=== PATIENT | female | born 1995 ===

== ENCOUNTER → 2020-10-04 11:19 | Outpatient (BNVA) | payer MEDICAID, SELFPAY | PROVIDERS: PCP Family Medicine; Visit Provider Advanced Practice Midwife | DX: Z76.89 Persons encountering health services in other specified circumstances (principal) ==

== ENCOUNTER 2020-11-10 13:06 | Outpatient (REF) | payer MEDICAID, SELFPAY ==
--- NOTE | ~2020-11-10 | XR_ITS ---
EXAMINATION: XR CHEST CLINICAL INFORMATION: Cough. COMPARISON: None TECHNIQUE: 2 views of the chest were obtained. FINDINGS: No significant abnormality is noted involving the heart, lungs, mediastinum, bony thorax or soft tissues. XR/XR chest 2V IMPRESSION: No acute cardiopulmonary process.
[2020-11-10 13:49] LABS: MANUAL DIFF FLAG NO
[2020-11-10 13:53] LABS: Basophils Percent Auto 0.3 % (0-2); Eosinophils Absolute Auto 0.5 X10*3/uL (0.0-0.4); Eosinophils Percent Auto 6.9 % (0-4); Hematocrit 37.1 % (37-47); Hemoglobin 11.4 g/dl (12.0-16.0); Imm Gran Abs Auto 0.01 X10*3/uL (0.00-0.03); Imm Gran Pct Auto 0.1 % (0.0-0.4); Lymphocytes Absolute Auto 2.3 X10*3/uL (1.2-4.9); Lymphocytes Percent Auto 33.7 % (20-40); Mean Corpuscular HGB Conc 30.7 g/dl (31.0-35.0); Mean Corpuscular Hemoglobin 24.1 pg (27.0-33.0); Mean Corpuscular Volume 78.3 fL (80-98); Monocytes Absolute Auto 0.5 X10*3/uL (0.1-1.2); Monocytes Percent Auto 7.9 % (2-11); Neutrophils Absolute Auto 3.5 X10*3/uL (2.0-8.3); Neutrophils Percent Auto 51.1 % (45-73); Platelet Count 395 X10*3/uL (160-400); Red Blood Count 4.74 X10*6/uL (4.20-5.50); Red Cell Distribution Width 15.2 % (11.0-16.0); White Blood Count 6.9 X10*3/uL (4.8-10.8)
[2020-11-10 14:34] LABS: Alanine Aminotransferase 25 U/L (0-31); Albumin Level 4.7 g/dL (3.5-5.0); Alkaline Phosphatase 128 U/L (39-117); Anion Gap 12 (12-20); Aspartate Amino Transferase 20 U/L (5-31); Bilirubin Direct < 0.2 mg/dL (0.0-0.5); Bilirubin Total 0.4 mg/dL (0.0-1.0); Blood Urea Nitrogen 8 mg/dL (9-16); Calcium 9.4 mg/dL (8.4-10.2); Carbon Dioxide 24 mmol/L (22-29); Chloride 107 mmol/L (96-108); Cholesterol 198 mg/dL; Estimated Glomerular Filt Rate > 60; Glucose Random 102 mg/dL (60-115); HDL Cholesterol 37 mg/dL; LDL Cholesterol Calculated 122 mg/dl; Potassium 3.8 mmol/L (3.3-5.1); Sodium 139 mmol/L (135-145); Total Protein 8.3 g/dL (6.5-8.0); Triglycerides 197 mg/dL
[2020-11-10 14:54] LABS: Estimated Average Glucose 117 mg/dL; Hemoglobin A1c % 5.7 %
[2020-11-10 14:55] LABS: Free T4 (Free Thyroxine) 0.81 ng/dL (0.71-1.85); Thyroid Stimulating Hormone 2.58 uIU/mL (0.32-4.0); Vitamin D 25-OH Total 12.9 ng/mL (>30)
[2020-11-11 08:22] LABS: HIV AB/AG Nonreactive (Nonreactive); HIV Num 1 0.13 S/CO (0.00-0.99); Hepatitis B Surface Antigen Negative (Negative)
[2020-11-11 08:24] LABS: ~HepC Num1 0.08 S/CO (0.00-0.79); ~Hepatitis C Antibody Nonreactive (Nonreactive)
[2020-11-11 08:33] LABS: ~Hepatitis B Surface Antibody NONREACTIVE (Nonreactive)
[2020-11-11 09:39] LABS: Syphilis Screen Nonreactive (Nonreactive)
[2020-11-11 14:56] LABS: C. trachomatis RNA TMA NOT DETECTED (NOT DETECTED); N. gonorrhoeae RNA TMA NOT DETECTED (NOT DETECTED)
== END 2020-11-10 13:07 | disposition home or self-care (01) ==
LOC: HO.LAB 13:06
PROVIDERS: PCP Family Medicine; Visit Provider Family Medicine
DX: F32.9 Major depressive disorder, single episode, unspecified (principal); G43.709 Chronic migraine without aura, not intractable, without status migrainosus; R05 Cough
CPT/HCPCS: 36415; 71046; 80048; 80061; 80076; 82306; 83036; 84439; 84443; 85025; 86706; 86780; 86803; 87340; 87389; 87491; 87591

== ENCOUNTER 2020-12-05 08:55 | Outpatient (REF) | payer MEDICAID, SELFPAY ==
[2020-12-05 10:41] LABS: Hematocrit 36.2 % (37-47); Hemoglobin 10.9 g/dl (12.0-16.0); Mean Corpuscular HGB Conc 30.1 g/dl (31.0-35.0); Mean Corpuscular Hemoglobin 23.6 pg (27.0-33.0); Mean Corpuscular Volume 78.5 fL (80-98); Mean Platelet Volume 10.5 fL (9.4-12.3); Platelet Count 390 X10*3/uL (160-400); Red Blood Count 4.61 X10*6/uL (4.20-5.50); Red Cell Distribution Width 15.6 % (11.0-16.0); White Blood Count 6.4 X10*3/uL (4.8-10.8)
[2020-12-05 11:14] LABS: HCG Quantitative < 2 mIU/mL
[2020-12-05 16:58] LABS: CT PCR NOT DETECTED (Not Detect.); NG PCR NOT DETECTED (Not Detect.)
[2020-12-06 09:04] LABS: BV Int Neg Control Negative (Negative); BV Int Pos Control Positive (Positive)
== END 2020-12-05 08:56 | disposition home or self-care (01) ==
LOC: HO.LAB 08:55
PROVIDERS: PCP Family Medicine; Visit Provider Advanced Practice Midwife
DX: Z01.419 Encounter for gynecological examination (general) (routine) without abnormal findings (principal); N92.6 Irregular menstruation, unspecified; Z88.0 Allergy status to penicillin; G43.909 Migraine, unspecified, not intractable, without status migrainosus; Z88.5 Allergy status to narcotic agent; Z97.5 Presence of (intrauterine) contraceptive device; Z11.3 Encounter for screening for infections with a predominantly sexual mode of transmission; Z11.8 Encounter for screening for other infectious and parasitic diseases
CPT/HCPCS: 36415; 84702; 85027; 87480; 87491; 87510; 87591; 87660; 88142

== ENCOUNTER 2020-12-15 10:30 | Outpatient (REF) | payer MEDICAID, SELFPAY ==
--- NOTE | ~2020-12-15 | US_ITS ---
EXAMINATION: ULTRASOUND PELVIS COMPLETE CLINICAL INFORMATION: Irregular menstruation. History of IUD. COMPARISON: None TECHNIQUE: Transabdominal and transvaginal ultrasound pelvis is performed. FINDINGS: On transabdominal ultrasound the uterus is anteverted and anteflexed measuring 7.7 cm in length, 3.3 cm in AP and 5.4 cm in transverse dimension. Endometrial thickness is 0.7 cm. An IUD is noted to be in correct position within the endometrial canal. No focal lesion seen. The right ovary measures 3.5 x 2.4 x 2.2 cm and volume 9.7 mL. There are small follicles seen in the right ovary. Left ovary measures 2.2 x 1.7 x 1.4 cm and volume 4.0 mL. There are small follicles visualized. There is no free fluid in the cul-de-sac. US/US pelvic complete IMPRESSION: Anteverted uterus with IUD in correct position within the endometrial canal. Small ovarian follicles seen bilaterally. There is no free fluid in the cul-de-sac.
--- NOTE | ~2020-12-15 | US_ITS ---
EXAMINATION: ULTRASOUND PELVIS COMPLETE CLINICAL INFORMATION: Irregular menstruation. History of IUD. COMPARISON: None TECHNIQUE: Transabdominal and transvaginal ultrasound pelvis is performed. FINDINGS: On transabdominal ultrasound the uterus is anteverted and anteflexed measuring 7.7 cm in length, 3.3 cm in AP and 5.4 cm in transverse dimension. Endometrial thickness is 0.7 cm. An IUD is noted to be in correct position within the endometrial canal. No focal lesion seen. The right ovary measures 3.5 x 2.4 x 2.2 cm and volume 9.7 mL. There are small follicles seen in the right ovary. Left ovary measures 2.2 x 1.7 x 1.4 cm and volume 4.0 mL. There are small follicles visualized. There is no free fluid in the cul-de-sac. US/US transvaginal IMPRESSION: Anteverted uterus with IUD in correct position within the endometrial canal. Small ovarian follicles seen bilaterally. There is no free fluid in the cul-de-sac.
== END 2020-12-15 10:31 | disposition home or self-care (01) ==
LOC: HO.US 10:30
PROVIDERS: Visit Provider Advanced Practice Midwife
DX: N92.6 Irregular menstruation, unspecified (principal)
CPT/HCPCS: 76830; 76856

== ENCOUNTER → 2020-12-19 13:38 | Outpatient (BNVA) | payer MEDICAID, SELFPAY | PROVIDERS: PCP Family Medicine; Visit Provider Advanced Practice Midwife ==

== ENCOUNTER → 2020-12-21 11:32 | Outpatient (BNVA) | payer MEDICAID, SELFPAY | PROVIDERS: PCP Family Medicine; Visit Provider Obstetrics & Gynecology ==

== ENCOUNTER → 2021-04-12 14:36 | Outpatient (BNVA) | payer MEDICAID, SELFPAY | PROVIDERS: Visit Provider Obstetrics & Gynecology ==

== ENCOUNTER → 2021-04-26 07:59 | Outpatient (BNVA) | payer MEDICAID, SELFPAY | PROVIDERS: Visit Provider Obstetrics & Gynecology | DX: Z30.09 Encounter for other general counseling and advice on contraception (principal) | CPT/HCPCS: 99212 ==

== ENCOUNTER 2021-05-26 09:17 | Day surgery (SDC) | payer MEDICAID, SELFPAY ==
[2021-05-22 09:14] VITALS: BMI 37.5
[2021-05-22 09:36] VITALS: BMI 37.5
--- NOTE | 2021-05-25 08:54 | HO.ANESPROP2 ---
Documented by User: Ambreen Lara NP 05/25/21 08:55 HPI - Anesthesia Eval Consult details Narrative: 26yo F for Laparoscopic Tubal Ligation with Bipolar Cutery & Poss Bilateral Salpingectomy PMFSH Active Problems Active Problems: All Active Problems (Updated 05/22/21 @ 10:12 by Kathya Khan RN) Family planning (Acute) Sterilization (Acute) Past Medical History Medical History (Updated 05/26/21 @ 10:00 by Joie Huerta MD) Asthma History of cardiac murmur as a child Increased BMI Migraine headache Seasonal allergies Family History Family History Maternal Grandmother Breast CA Colon cancer Maternal Aunt Breast CA Family/Other Colon cancer Surgical History Surgical History (Updated 05/26/21 @ 09:59 by Joie Huerta MD) No significant past surgical history Social History Social History Patient Tobacco Use Status: Never used Tobacco Use of substances other than those prescribed or required for medical reasons: No Have you been hit, kicked, punched, or otherwise hurt by someone within the past year? If so, by whom?: No Are you DNR?: No Advance Directives: No Advance Directives Information Provided: No Advance Directives on File: No Patient : No FDLMP: 05/20/2021 : No Poor oral hygiene: No Meds Allergies Allergy/AdvReac Type Severity Reaction Status Date / Time Penicillins [PENICILLINS] Allergy Unknown HIVES Verified 05/22/21 09:35 Codeine Sulfate Allergy Unknown tachycardia Uncoded 05/22/21 09:35 Home Medications Medication Instructions Recorded Confirmed Last Taken Type amitriptyline 50 mg tablet 50 mg PO DAILY 10/04/20 Unknown History topiramate 50 mg capsule 50 mg PO DAILY 10/04/20 Unknown History sprinkle,extended release 24 hr albuterol sulfate 90 mcg/actuation 1 inh INHALATION QID PRN 12/05/20 05/22/21 Unknown History aerosol inhaler cholecalciferol (vitamin D3) 50 50 mcg PO DAILY 12/05/20 Unknown History mcg (2,000 unit) capsule copper 380 square mm intrauterine INTRAUTERINE 04/12/21 Unknown History device (ParaGard T 380A) cetirizine 10 mg capsule (Zyrtec) 10 mg PO DAILY PRN 04/26/21 05/22/21 Unknown History melatonin 5 mg tablet 1 - 2 tab PO BEDTIME PRN 05/22/21 05/22/21 Unknown History Exam Exam Date and Time: May 25, 2021 0854 Height,Weight and Vital Signs: Height 5 ft 5 in Weight 102.512 kg Assessment and Plan Assessment Anesthesia Assessment: Chart Reviewed Documented by User: Joie Huerta MD 05/26/21 10:01 [facility] Past Medical History Medical History (Updated 05/26/21 @ 10:00 by Joie Huerta MD) Asthma History of cardiac murmur as a child Increased BMI Migraine headache Seasonal allergies Family History Family History Maternal Grandmother Breast CA Colon cancer Maternal Aunt Breast CA Family/Other Colon cancer Family history of problems with anesthesia: No Surgical History Surgical History (Updated 05/26/21 @ 09:59 by Joie Huerta MD) No significant past surgical history History of Problems with Anesthesia: No Social History Social History Patient Tobacco Use Status: Never used Tobacco Use of substances other than those prescribed or required for medical reasons: No Have you been hit, kicked, punched, or otherwise hurt by someone within the past year? If so, by whom?: No Are you DNR?: No Advance Directives: No Advance Directives Information Provided: No Advance Directives on File: No Patient : No FDLMP: 05/20/2021 : No Poor oral hygiene: No Meds Allergies Allergy/AdvReac Type Severity Reaction Status Date / Time Penicillins [PENICILLINS] Allergy Unknown HIVES Verified 05/22/21 09:35 Codeine Sulfate Allergy Unknown tachycardia Uncoded 05/22/21 09:35 Home Medications Medication Instructions Recorded Confirmed Last Taken Type amitriptyline 50 mg tablet 50 mg PO DAILY 10/04/20 Unknown History topiramate 50 mg capsule 50 mg PO DAILY 10/04/20 Unknown History sprinkle,extended release 24 hr albuterol sulfate 90 mcg/actuation 1 inh INHALATION QID PRN 12/05/20 05/22/21 Unknown History aerosol inhaler cholecalciferol (vitamin D3) 50 50 mcg PO DAILY 12/05/20 Unknown History mcg (2,000 unit) capsule copper 380 square mm intrauterine INTRAUTERINE 04/12/21 Unknown History device (ParaGard T 380A) cetirizine 10 mg capsule (Zyrtec) 10 mg PO DAILY PRN 04/26/21 05/22/21 Unknown History melatonin 5 mg tablet 1 - 2 tab PO BEDTIME PRN 05/22/21 05/22/21 Unknown History Exam Height,Weight and Vital Signs: Height 5 ft 5 in Weight 102.512 kg Vital Signs Temp Pulse Resp BP Pulse Ox 05/26/21 09:49 97.2 F 72 18 143/77 H 100 Pertinent Lab Results Pertinent Lab Results: Lab Results 05/26/21 Range/Units 09:20 Urine Test NEGATIVE (NEGATIVE) Airway Mallampati Class: II TM Dist: >3cm Neck ROM: Full Heart: RRR Lungs: CTAB Assessment and Plan Assessment Anesthesia Assessment: Anesthesia Plan Discussed Final Anesthetic Review Family History of Problems with Anesthesia: No History of Problems with Anesthesia: No NPO: Yes ASA Class: III Final Preanesthetic Review: No Changes in Pt Med Stat, Meds/Allgs Chart Reviewed, Consent Obtained/Reviewed and Anes Risks/Benef Reviewed Patient Risk: Intermediate Procedure Risk: Low Assessment/Block/Sedation in SS: Assess/Block/Sedation-SS Anesthetic Plan Anesthetic Plan: GA Disposition: Standard PACU
[2021-05-26] VITALS (13 sets, daily range): BP systolic 121–143; BP diastolic 67–82; PULSE 64–82; RESP 14–18; TEMP 36.1–36.2; O2SAT 94–100
[2021-05-26 09:58] LABS: UPreg QC Valid YES; Urine Pregnancy NEGATIVE (NEGATIVE)
[2021-05-26] MEDS: Acetaminophen 325 MG TABLET 650 MG PO (10:01)
[2021-05-26] MEDS: Lactated Ringers 1,000 ML 100 ML IVCONT (10:02)
--- NOTE | 2021-05-26 10:08 | MHC.SHP ---
Pre-Procedural Eval Section A Date of Service: 05/26/21 The patient is an INPATIENT: No Changes since office visit: No Cold of Flu in the past 2 weeks, No New Medical Problems, No Changes in Medication and No Patient answered all questions The History & Physical has been completed within 30 days and I have reviewed it.: Yes Section B Chief Complaint: Pt requesting permanent sterization Allergies: Allergies Allergy/AdvReac Type Severity Reaction Status Date / Time Penicillins [PENICILLINS] Allergy Unknown HIVES Verified 05/26/21 10:03 Codeine Sulfate Allergy Unknown tachycardia Uncoded 05/26/21 10:03 Plan Diagnosis/Plan: Unchanged I have reviewed the history and physical and performed a pertinent physical examination on my patient. No changes have occurred unless specified.
--- NOTE | 2021-05-26 11:51 | P.BOP_ITS ---
Brief Operative Note Date of Service: 05/26/21 Pre-op diagnosis: Completed family requesting permanent sterilization Post-op diagnosis: same Procedure: IUD removal and Laparoscopic bliateral salpingectomy Surgeon: Nicholas Garcia MD Anesthesia: GETA Was an Network Control Technician used for this Procedure?: No Estimated blood loss (mL): 0 Pathology: other (Right & left fallopian tubes) Condition: stable Disposition: PACU
--- NOTE | 2021-05-26 11:52 | P.OP_ITS ---
Operative Note Operative Note Date of Service: 05/26/21 Narrative: PREOPERATIVE DIAGNOSIS:?Completed family requesting?permanent sterilization POSTOPERATIVE DIAGNOSIS:?Completed family requesting?permanent sterilization Operation: IUD removal and laparoscopic bilateral salpingectomy QBL: Minimal Anesthesia: GETA SURGEON:? Nicholas Garcia MD?? Forming Machine Upkeep Mechanic Helper: Complications: None Pathology: Right and left Fallopian tubes? DESCRIPTION OF PROCEDURE:?The patient was taken to the OR where general an esthesia was easily obtained. The patient was then prepped and draped in a sterile fashion and placed in dorsal lithotomy position. A speculum was introduced into the patient?s vagina for cervical visualization. Once the cervix was visualized, IUD string was seen and using a ring forceps it was removed. A single-toothed tenaculum was applied to the upper lip of the cervix, and a Humi manipulator was introduced into the patient?s cervix. The single tooth tenaculum was then removed and hemostasis was assured?using pressure. a Enrique catheter?was inserted and clear urine started draining. Gloves were changed to clean ones. Attention was then drawn to the abdomen where a 10 mm longitudinal incision was done intra umbilical and carried down all the way to the fascia, which was tented?up using 2 Kim clamps and was nicked in the midline and then extended on both end of the incision?, them using 2 pick?ups the peritoneum?was entered with Metzenbaum scissors and under direct visualization, a 10 mm Nieves trocar was introduced into the patient?s abdomen. Once intraperitoneal placement was confirmed with direct visualization, pneumoperitoneum was started & was easily obtained.Then, two fingerbreadths above the pubic symphysis and towards the?right lower quadrant, under direct visualization, a 5 mm trocar was then introduced into the patient?s abdomen. and a 3rd one on the left?lower quadrant was placed?in a similar manner. The patient was placed in Trendelenburg position, Inspection revealed normal pelvic structures & bilateral ovaries and fallopian tubes. Attention was then drawn to the left fallopian tube. The IP ligament was identified and fallopian tube was then grasped by the fimbria and incised from the mesosalpinx using ligasure device, using cautery for hemostasis and cutting afterwards a bite at a time all the way to the cornual end of the left tube. The same was done?on the?right fallopian tube. Good hemostasis was noted from both fallopian tube sites and the operative site. Specimen were then removed from the patient?s abdomen. Copious irrigation was done. Once good hemostasis was noted from the patient?s abdomen, pneumoperitoneum was deflated and all trocars were removed. Infraumbilical fascia was closed with 0 Vicryl and interrupted suture. The skin was closed with 4-0 Vicryl. The Right and left?lower quadrant ports were closed with 0 Vicryl. Bupivicaine 0.25 10 cc were injected subcuticularly in the 3 incisions. Then speculum was put back in the vagina inspection revealed?hemostasis at the site of the tenaculum, the?humi manipulator was removed? and Enrique was draining clear urine was taken out too. Sponge, lap and needle counts were correct x2. The patient was taken to the recovery room in stable condition.
[2021-05-26] MEDS: oxyCODONE HCl Immed Release 5 MG TABLET PO (12:29)
[2021-05-26] MEDS: fentaNYL citrate/PF 100 MCG/2 ML VIAL 25 MCG IVPUSH (12:29)
[2021-05-26] MEDS: ondansetron HCL 4 MG/2 ML VIAL IVPUSH (12:33)
--- NOTE | 2021-05-26 14:46 | PC.NURSE ---
Dr Garcia contacted by [employer] re: Oxycodone RX. Pt advised by MD to get RX as intended and if any adverse reaction, stop med and call him
== END 2021-05-26 14:35 | disposition home or self-care (01) ==
PROVIDERS: Nurse Practitioner; PCP Family Medicine; Visit Provider Obstetrics & Gynecology
PROC: (CPT 58670; principal; 2021-05-26 10:30)
DX: Z30.2 Encounter for sterilization (principal); Z30.432 Encounter for removal of intrauterine contraceptive device; J45.909 Unspecified asthma, uncomplicated; Z88.0 Allergy status to penicillin; Z88.8 Allergy status to other drugs, medicaments and biological substances; Z79.899 Other long term (current) drug therapy
CPT/HCPCS: 58661; 58301; 81025; 88302; J1100; J1170; J1200; J2250; J2370; J2405; J3010

== ENCOUNTER → 2021-06-07 12:45 | Outpatient (BNVA) | payer MEDICAID, SELFPAY | PROVIDERS: PCP Family Medicine; Visit Provider Obstetrics & Gynecology ==

== ENCOUNTER → 2021-06-26 08:59 | Outpatient (BNVA) | payer MEDICAID, SELFPAY | PROVIDERS: PCP Family Medicine; Visit Provider Obstetrics & Gynecology | DX: T81.40XD Infection following a procedure, unspecified, subsequent encounter (principal) | CPT/HCPCS: 99212 ==

== ENCOUNTER 2021-12-11 09:08 | Outpatient (REF) | payer MEDICAID, SELFPAY ==
[2021-12-11 15:10] LABS: CT PCR NOT DETECTED (Not Detect.); NG PCR NOT DETECTED (Not Detect.)
[2021-12-12 13:01] LABS: BV Int Neg Control Negative (Negative); BV Int Pos Control Positive (Positive)
== END 2021-12-11 09:09 | disposition home or self-care (01) ==
LOC: HO.LAB 09:08
PROVIDERS: PCP Family Medicine; Visit Provider Advanced Practice Midwife
DX: Z01.411 Encounter for gynecological examination (general) (routine) with abnormal findings (principal); N89.8 Other specified noninflammatory disorders of vagina; Z20.2 Contact with and (suspected) exposure to infections with a predominantly sexual mode of transmission
CPT/HCPCS: 87480; 87491; 87510; 87591; 87660

== ENCOUNTER 2022-06-05 07:50 | Outpatient (REF) | payer MEDICAID, SELFPAY ==
[2022-06-05 08:57] LABS: Hematocrit 38.1 % (37.0-47.0); Hemoglobin 11.8 g/dl (12.0-16.0); Mean Corpuscular Hemoglobin 24.6 pg (27.0-33.0); Mean Corpuscular Volume 79.4 fL (80.0-98.0); Mean Platelet Volume 10.3 fL (9.4-12.3); Platelet Count 449 X10*3/uL (160-400); Red Cell Distribution Width 14.9 % (11.0-16.0); White Blood Count 7.2 X10*3/uL (4.8-10.8)
[2022-06-05 09:08] LABS: Estimated Average Glucose 108 mg/dL; Hemoglobin A1c % 5.4 %
[2022-06-05 09:33] LABS: Alanine Aminotransferase 25 U/L (0-31); Albumin Level 4.3 g/dL (3.5-5.0); Alkaline Phosphatase 104 U/L (39-117); Anion Gap 15 (12-20); Aspartate Amino Transferase 22 U/L (5-31); Bilirubin Direct 0.3 mg/dL (0.0-0.5); Blood Urea Nitrogen 10 mg/dL (9-16); Calcium 9.4 mg/dL (8.4-10.2); Carbon Dioxide 26 mmol/L (22-29); Chloride 102 mmol/L (96-108); Cholesterol 190 mg/dL; Estimated Glomerular Filt Rate > 60; Glucose Random 89 mg/dL (60-115); HDL Cholesterol 42 mg/dL; LDL Cholesterol Calculated 125 mg/dl; Potassium 4.5 mmol/L (3.3-5.1); Sodium 138 mmol/L (135-145); Total Protein 8.2 g/dL (6.5-8.0); Triglycerides 116 mg/dL
[2022-06-05 09:45] LABS: ~HepC Num1 0.16 S/CO (0.00-0.79); ~Hepatitis C Antibody Nonreactive (Nonreactive)
[2022-06-05 09:46] LABS: HBS Num1 1.86 mIU/mL (0-7.99); HIV AB/AG Nonreactive (Nonreactive); HIV Num 1 0.07 S/CO (0.00-0.99); Hepatitis B Surface Antigen Negative (Negative); ~Hepatitis B Surface Antibody NONREACTIVE (Nonreactive)
[2022-06-05 09:55] LABS: Free T4 (Free Thyroxine) 0.98 ng/dL (0.71-1.85); Thyroid Stimulating Hormone 1.33 uIU/mL (0.32-4.0); Vitamin D 25-OH Total 30.7 ng/mL (>30)
[2022-06-05 14:34] LABS: CT PCR NOT DETECTED (Not Detect.); NG PCR NOT DETECTED (Not Detect.)
[2022-06-06 05:38] LABS: Syphilis Screen Nonreactive (Nonreactive)
== END 2022-06-05 07:51 | disposition home or self-care (01) ==
LOC: HO.LAB 07:50
PROVIDERS: PCP Family Medicine; Visit Provider Family Medicine
DX: Z00.00 Encounter for general adult medical examination without abnormal findings (principal); Z11.3 Encounter for screening for infections with a predominantly sexual mode of transmission; Z11.4 Encounter for screening for human immunodeficiency virus [HIV]
CPT/HCPCS: 80048; 80061; 80076; 82306; 83036; 84439; 84443; 85027; 86592; 86706; 86780; 86803; 87340; 87389; 87491; 87591

== ENCOUNTER 2022-12-21 07:22 | Outpatient (REF) | payer MEDICAID, SELFPAY ==
[2022-12-21 07:54] LABS: MANUAL DIFF FLAG NO
[2022-12-21 08:13] LABS: Basophils Percent Auto 0.5 % (0-2); Eosinophils Absolute Auto 0.1 X10*3/uL (0.0-0.4); Eosinophils Percent Auto 1.2 % (0-4); Hematocrit 39.4 % (37.0-47.0); Hemoglobin 12.4 g/dl (12.0-16.0); Imm Gran Abs Auto 0.02 X10*3/uL (0.00-0.03); Imm Gran Pct Auto 0.3 % (0.0-0.4); Lymphocytes Absolute Auto 1.7 X10*3/uL (1.2-4.9); Lymphocytes Percent Auto 22.4 % (20-40); Mean Corpuscular HGB Conc 31.5 g/dl (31.0-35.0); Mean Corpuscular Hemoglobin 25.4 pg (27.0-33.0); Mean Corpuscular Volume 80.7 fL (80.0-98.0); Mean Platelet Volume 9.9 fL (9.4-12.3); Monocytes Absolute Auto 0.4 X10*3/uL (0.1-1.2); Monocytes Percent Auto 4.8 % (2-11); Neutrophils Absolute Auto 5.5 x10*3/uL (2.0-8.3); Neutrophils Percent Auto 70.8 % (45-73); Platelet Count 418 X10*3/uL (160-400); Red Blood Count 4.88 X10*6/uL (4.20-5.50); Red Cell Distribution Width 14.6 % (11.0-16.0); White Blood Count 7.7 X10*3/uL (4.8-10.8)
[2022-12-21 08:34] LABS: Estimated Average Glucose 120 mg/dL; Hemoglobin A1c % 5.8 %
[2022-12-21 08:54] LABS: HBS Num1 0.29 mIU/mL (0-7.99); HBsAGNum1 0.46 S/CO (0.00-0.99); HIV AB/AG Nonreactive (Nonreactive); HIV Num 1 0.06 S/CO (0.00-0.99); Hepatitis B Surface Antigen Negative (Negative); ~Hepatitis B Surface Antibody NONREACTIVE (Nonreactive)
[2022-12-21 08:55] LABS: ~HepC Num1 0.17 S/CO (0.00-0.79); ~Hepatitis C Antibody Nonreactive (Nonreactive)
[2022-12-21 10:09] LABS: Syphilis Screen Nonreactive (Nonreactive)
[2022-12-21 11:58] LABS: Alanine Aminotransferase 31 U/L (0-31); Albumin Level 4.6 g/dL (3.5-5.0); Alkaline Phosphatase 105 U/L (39-117); Anion Gap 16 (12-20); Aspartate Amino Transferase 24 U/L (5-31); Bilirubin Direct 0.2 mg/dL (0.0-0.5); Bilirubin Total 0.6 mg/dL (0.0-1.0); Blood Urea Nitrogen 8 mg/dL (9-16); Calcium 9.8 mg/dL (8.4-10.2); Carbon Dioxide 24 mmol/L (22-29); Chloride 104 mmol/L (96-108); Cholesterol 188 mg/dL; Estimated Glomerular Filt Rate > 60; Glucose Random 96 mg/dL (60-115); HDL Cholesterol 42 mg/dL; Iron 143 mcg/dL (30-160); LDL Cholesterol Calculated 126 mg/dl; Percent Iron Saturation 32 % (15-50); Potassium 4.4 mmol/L (3.3-5.1); Sodium 140 mmol/L (135-145); Total Iron Binding Capacity 441 mcg/dL (228-428); Total Protein 8.1 g/dL (6.5-8.0); Triglycerides 101 mg/dL; Unsaturated Iron Binding 298 ug/dL
[2022-12-21 12:25] LABS: Ferritin 9 ng/mL (10-122); Folate 9.8 ng/mL (> or = 4.0); Free T4 (Free Thyroxine) 0.85 ng/dL (0.71-1.85); Thyroid Stimulating Hormone 2.36 uIU/mL (0.32-4.0); Vitamin B12 640 pg/mL (200-900); Vitamin D 25-OH Total 39.6 ng/mL (>30)
[2022-12-21 15:15] LABS: CT PCR NOT DETECTED (Not Detect.); NG PCR NOT DETECTED (Not Detect.)
== END 2022-12-21 07:23 | disposition home or self-care (01) ==
LOC: HO.LAB 07:22
PROVIDERS: PCP Family Medicine; Visit Provider Family Medicine
DX: Z00.00 Encounter for general adult medical examination without abnormal findings (principal); Z11.4 Encounter for screening for human immunodeficiency virus [HIV]
CPT/HCPCS: 0353U; 80048; 80061; 80076; 82306; 82607; 82728; 82746; 83036; 83540; 84439; 84443; 85025; 86592; 86706; 86780; 86803; 87340; 87389

== ENCOUNTER 2023-05-08 09:46 | Outpatient (REF) | payer MEDICAID, SELFPAY | END 2023-05-08 09:47 | disposition home or self-care (01) | LOC: HO.LNP 09:46 | PROVIDERS: PCP Family Medicine; Visit Provider Obstetrics & Gynecology | DX: Z01.419 Encounter for gynecological examination (general) (routine) without abnormal findings (principal) | CPT/HCPCS: 88142 ==

== ENCOUNTER 2023-05-08 09:46 | Outpatient (AMB) | payer MEDICAID, SELFPAY ==
--- OUTSIDE RECORDS SUMMARY | 2023-05-08 09:47 | XMS_ITS | Continuity of Care Document ---
Author Name Unknown Organization [facility] Address Unknown Care Team Providers Care Insulation Worker Interior Surface Name Role Phone Lucina Frances DO Primary Care Physician Encounter [facility] [place] Date(s): 04/25/21 - 05/25/21 [facility] Attending Physician: Azul Varela Admitting Physician: Azul Varela Referring Physician: AdmtrAzul Allergies, Adverse Reactions, Alerts Substance Reaction Severity Status penicillins Active Medications SUMAtriptan 50 mg oral tablet 1 tablet, By Mouth, Daily, PRN NEEDED FOR MIGRAINE HEADACHE,INSTR, MAY REPEAT DOSE AFTER 2 HOURSUP TO A MAXIMUM OF 2 IN 24 HOUR PERIOD. NO MORE THAN 3 DAYS OF USE PER WEEK., # 9 tablet, 0 Refills, Soft Stop, 01/12/21 13:50:00 EDT, [id number] Start Date: 01/12/21 Status: Ordered
--- OUTSIDE RECORDS SUMMARY | 2023-05-08 09:47 | XMS_ITS | Continuity of Care Document ---
Author Name Unknown Organization [facility] Address Unknown Care Team Providers Care Computer Operations Technician Name Role Phone Lucina Frances DO Primary Care Physician Encounter [facility] [place] [facility] R [id number] Date(s): 08/25/21 - 11/26/21 [facility] Attending Physician: Haley Davis MD Admitting Physician: Haley Davis MD Allergies, Adverse Reactions, Alerts Substance Reaction Severity Status penicillins Active Medications SUMAtriptan 50 mg oral tablet 1 tablet, By Mouth, Daily, PRN NEEDED FOR MIGRAINE HEADACHE,INSTR, MAY REPEAT DOSE AFTER 2 HOURSUP TO A MAXIMUM OF 2 IN 24 HOUR PERIOD. NEEDS NEUROLOGY FOLLOW UP., # 9 tablet, 0 Refills, Soft Stop, 11/06/21 10:54:00 EST, [id number] Start Date: 11/06/21 Status: Ordered
--- OUTSIDE RECORDS SUMMARY | 2023-05-08 09:47 | XMS_ITS | Continuity of Care Document ---
Author Name Unknown Organization [facility] Address Unknown Care Team Providers Care Souvenir [address] Vendor Name Role Phone Lucina Frances DO Primary Care Physician [phone] Encounter [facility] [place] Date(s): 10/20/21 - 11/23/21 [facility] Attending Physician: Romelia Manuel Admitting Physician: Romelia Manuel Referring Physician: Lucina Frances DO Allergies, Adverse Reactions, Alerts Substance Reaction Severity Status penicillins Active Medications SUMAtriptan 50 mg oral tablet 1 tablet, By Mouth, Daily, PRN NEEDED FOR MIGRAINE HEADACHE,INSTR, MAY REPEAT DOSE AFTER 2 HOURSUP TO A MAXIMUM OF 2 IN 24 HOUR PERIOD. NEEDS NEUROLOGY FOLLOW UP., # 9 tablet, 0 Refills, Soft Stop, 11/06/21 10:54:00 EST, [facility]/pharmacy #[id number] Start Date: 11/06/21 Status: Ordered
--- OUTSIDE RECORDS SUMMARY | 2023-05-08 09:47 | XMS_ITS | Continuity of Care Document ---
Author Name Unknown Organization [facility] [place] Address [address] [place] [address]- Care Team Providers Care Stitcher Tape Controlled Machine Name Role Phone Lucina Frances DO Primary Care Physician Encounter [facility] Date(s): 06/15/22 - 07/15/22 [facility] [place] [address] [place] [address]- Allergies, Adverse Reactions, Alerts Substance Reaction Severity Status penicillins Active Medications albuterol (OP) 0 Refills, Maintenance, 2 Start Date: 06/20/22 Status: Ordered Citrucel 500 mg oral tablet 2 tablet = 1,000 mg, By Mouth, Daily, for 60 days, with plenty of water., # 120 tablet, 1 Refills, Acute 10/19/22 11:46:00 EST, 06/21/22 11:46:00 EDT, [facility]/pharmacy #[id number], Partial fill upon patient request if the prescription is for a schedule II opioi... Start Date: 06/21/22 Stop Date: 10/19/22 Status: Ordered famotidine 20 mg oral tablet 20 mg, 1, tablet, By Mouth, Daily, # 30 tablet, Refills 0, Tot. Refills 0, Maintenance, 06/13/22 0:34:00 EDT, Route to Pharmacy Electronically, [id number], Partial fill upon patient request if the prescription is for a schedule II opioid drug.... Start Date: 06/13/22 Stop Date: 07/13/22 Status: Ordered NuLYTELY with Flavor Packs oral powder for reconstitution See Instructions, as directed before colonoscopy, # 4,000 mL, 0 Refills, Maintenance, 06/20/22 15:18:00 EDT, [id number], Partial fill upon patient request if the prescription is for a schedule II opioid drug., as directed before colonoscopy, 1... Start Date: 06/20/22 Status: Ordered omeprazole 20 mg oral delayed release tablet 1 tablet = 20 mg, By Mouth, Daily, # 30 tablet, 1 Refills, Maintenance, 06/21/22 11:45:00 EDT, CR Tablet, [id number], Partial fill upon patient request if the prescription is for a schedule II opioid drug., 165, cm, 06/20/22 14:28:00 EDT, [facility]... Start Date: 06/21/22 Stop Date: 08/20/22 Status: Ordered Vital-D oral tablet 1 tablet, By Mouth, Daily, # 100 tablet, 0 Refills, Maintenance, 06/20/22 14:30:00 EDT, Tablet, Partial fill upon patient request if the prescription is for a schedule II opioid drug. Start Date: 06/20/22 Status: Ordered ZyrTEC 10 mg oral tablet 1 tablet = 10 mg, By Mouth, Daily, # 30 tablet, 0 Refills, Maintenance, 06/20/22 14:30:00 EDT, Tablet, Partial fill upon patient request if the prescription is for a schedule II opioid drug. Start Date: 06/20/22 Status: Ordered Problem List Condition Confirmation Course Effective Dates Status Health St atus Informant Obese class II Confirmed Active Patient Care team information Personnel Name: Lucina Frances DO Address: Address: [address] [place] [id number]
--- OUTSIDE RECORDS SUMMARY | 2023-05-08 09:47 | XMS_ITS | Continuity of Care Document ---
Author Name Unknown Organization [facility] [place] Address [address] [place] [address]- Care Team Providers Care Service Desk Analyst Name Role Phone Lucina Frances DO Primary Care Physician [phone] Encounter [facility] Date(s): 06/14/22 - 07/14/22 [facility] [place] [address] [place], [place] [address] Allergies, Adverse Reactions, Alerts Substance Reaction Severity Status penicillins Active Medications albuterol (OP) 0 Refills, Maintenance, 2 Start Date: 06/20/22 Status: Ordered Citrucel 500 mg oral tablet 2 tablet = 1,000 mg, By Mouth, Daily, for 60 days, with plenty of water., # 120 tablet, 1 Refills, Acute 10/19/22 11:46:00 EST, 06/21/22 11:46:00 EDT, [facility]/pharmacy #[id number], Partial fill upon patient request [...] Personnel Name: Lucina Frances DO Address: Address: [address] [place] [id number]
--- NOTE | 2023-05-08 09:48 | A.OFFVIS_ITS ---
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 No complaints. Last Pap/HPV was in 12/11 was negative/HPV positive, the patient has history of ascus/HPV negative in 11/11 [facility] Medical History ASCUS of cervix with negative high risk HPV Asthma History of cardiac murmur as a child Increased BMI Migraine headache Seasonal allergies Surgical History Hx of tubal ligation No significant past surgical history Family History Maternal Grandmother Breast CA Colon cancer Maternal Aunt Breast CA Family/Other Colon cancer Social History Alcohol intake: never Patient Tobacco Use Status: Never used Tobacco Female Reproductive History Menstrual Age of Menarche: 11 Duration of menses: 6-7 days Date of last menstrual period: 04/10/23 control method: permanent sterilization Total pregnancies: 2 Full term: 2 Number of Living Children: 2 Date of last pap smear: 12/06/20 (negative) History of abnormal pap smear: Yes Review of Systems Const All systems reviewed & are unremarkable except as noted in HPI and below Card Reports as per HPI Resp Reports as per HPI GI Reports as per HPI and Reports no additional complaints Reports as per HPI Physical Exam Const General: cooperative, healthy appearing and comfortable Chest Chest palpation & inspection: normal inspection of the chest and normal palpation of entire chest wall Breast/axilla inspection: normal inspection of the breasts and normal inspection of the axillae Breast/axilla palpation: normal palpation of the breasts, normal palpation of the axillae and no axillary lymphadenopathy Resp Effort & Inspection: normal respiratory effort Auscultation: clear to auscultation bilaterally Percussion: percussion normal Cardio Palpation: normal PMI Rate: regular rate Rhythm: regular rhythm Heart sounds: no murmurs and no rubs Peripheral pulses: Peripheral pulses 2+ throughout GI Inspection: Yes normal to inspection Palpation (GI): Soft to palpation, nontender, no guarding, not rigid and No hepatosplenomegaly present Percussion: Yes normal to percussion Auscultation: normal bowel sounds Rectal Exam - Female: deferred General: Yes bladder normal to palpation External Female Exam: No lesion Speculum Exam - Vagina: normal appearance of the vagina, normal palpation, normal vaginal discharge and not erythematous Speculum Exam - Cervix: normal appearance of the cervix and normal palpation Bimanual exam- vagina & uterus: normal bimanual exam, normal palpation, uterine size normal, bladder normal to palpation, consistency normal and normal palpation Bimanual Exam- Adnexa, other: normal adnexae, no masses and no tenderness Assessment & Plan Assessment & Plan (1) Encounter for well woman exam: Code(s): Z01.419 - Encounter for gynecological examination (general) (routine) without abnormal findings Plan: Co testing done. Counseled the patient about the recommended dietary allowance of 1000 mg of Calcium & 600 IU of vitamin D. The patient was instructed to perform monthly self-breast exams and to schedule an annual exam in a year; All questions answered and the patient verbalized understanding. Instructed the patient to schedule annual exam in a year Coding Level of Care Code Est Pt Prev Care 18-39y([id number]) Diagnoses Encounter for well woman exam Z01.419
--- OUTSIDE RECORDS SUMMARY | 2023-05-08 09:48 | XMS_ITS | Continuity of Care Document ---
Author Name Unknown Organization [facility] [place] Address [address] [place] [address]- Care Team Providers Care Master Cook Name Role Phone Lucina Frances DO Primary Care Physician [phone] Encounter [facility] Date(s): 06/21/22 - 07/21/22 [facility] [place] [address] [place], [place] [address] Allergies, Adverse Reactions, Alerts Substance Reaction Severity Status penicillins Active Medications albuterol (OP) 0 Refills, Maintenance, 2 Start Date: 06/20/22 Status: Ordered Citrucel 500 mg oral tablet 2 tablet = 1,000 mg, By Mouth, Daily, for 60 days, with plenty of water., # 120 tablet, 1 Refills, Acute 10/19/22 11:46:00 EST, 06/21/22 11:46:00 EDT, [facility]/pharmacy #[id number], Partial fill upon patient request [...] Personnel Name: Lucina Frances DO Address: Address: [address] [place] [id number]
--- OUTSIDE RECORDS SUMMARY | 2023-05-08 09:48 | XMS_ITS | Continuity of Care Document ---
Author Name Unknown Organization [facility] Address [address] [place] [address]- Care Team Providers Care Plumbing And Heating Contractor Name Role Phone Lucina Frances DO Primary Care Physician Encounter [facility] Date(s): 11/19/22 - 11/19/[address] [address]- Discharge Disposition: A-D/C Home Attending Physician: Tyrell Ocampo MD Admitting Physician: Tyrell Ocampo MD Referring Physician: Tyrell Ocampo MD Allergies, Adverse Reactions, Alerts Substance Reaction Severity Status penicillins Active Medications albuterol (OP) 0 Refills, Maintenance, 2 Start Date: 06/20/22 Status: Ordered famotidine 20 mg oral tablet 20 mg, 1, tablet, By Mouth, Daily, # 30 tablet, Refills 0, Tot. Refills 0, Maintenance, 06/13/22 0:34:00 EDT, Route to Pharmacy Electronically, [facility]/pharmacy #[id number], Partial fill upon patient request if [...] Refills, Maintenance, 06/21/22 11:45:00 EDT, CR Tablet, [facility]/pharmacy #[id number], Partial fill upon patient request if the prescription is for a schedule II opioid drug., 165, cm, 06/20/22 14:28:00 EDT, [place]. Start Date: 06/21/22 Stop Date: 08/20/22 Status: [...] atus Informant Obese class II Confirmed Active Vital Signs Most recent to oldest [Reference Range]: 1 2 3 Height 165 cm (11/19/22 12:17 PM) Oxygen Saturation [94-100 %] 100 % (11/19/22 2:06 PM) 98 % (11/19/22 2:03 PM) 99 % (11/19/22 1:57 PM) Pulse Rate [55-90 bpm] 72 bpm (11/19/22 12:17 PM) Blood Pressure [90-138/55-84 mm Hg] 143/87mm Hg *H* (11/19/22 2:06 PM) 135/81mm Hg 1 (11/19/22 2:03 PM) 138/91mm Hg (11/19/22 1:57 PM) Respiratory Rate [16-30 br/min] 21 br/min (11/19/22 2:06 PM) 23 br/min (11/19/22 2:03 PM) 28 br/min (11/19/22 1:57 PM) Temperature [96.8-100.4 DegF] 96.7 DegF *L* (11/19/22 1:48 PM) 97.9 DegF (11/19/22 12:17 PM) Mode of Delivery (Oxygen) Room air (11/19/22 2:06 PM) Room air (11/19/22 2:03 PM) Room air (11/19/22 1:57 PM) Blood pressure sites Arm, left (11/19/22 2:06 PM) Arm, left (11/19/22 2:03 PM) Arm, left (11/19/22 1:57 PM) Temperature Route Temporal (11/19/22 1:48 PM) Temporal (11/19/22 12:17 PM) Dry Weight 104.1 kg (11/19/22 12:17 PM) Dry Weight Obtained Via Standing scale (11/19/22 12:17 PM) 1Result Comment: Pt. states this is her normal range. Patient Care team information Care Team Personnel Name: Lucina Frances DO Position: [facility] Outreach Member Role: PCP Address: Address: [address] [place] [id number]- Care Team Related Persons Name: GLADYS JENSEN Address: home [address] [place] [address]
--- OUTSIDE RECORDS SUMMARY | 2023-05-08 09:48 | XMS_ITS | Continuity of Care Document ---
Author Name Unknown Organization [facility] [place] Address [address] [place] [address]- Care Team Providers Care Nc Machinist Name Role Phone Lucina Frances DO Primary Care Physician [phone] Encounter [facility] Date(s): 01/14/23 - 02/13/23 [facility] [place] [address] [place], [place] [address] Allergies, Adverse Reactions, Alerts Substance Reaction Severity Status penicillins Active Medications albuterol (OP) 0 Refills, Maintenance, 2 Start Date: 06/20/22 Status: Ordered famotidine 20 mg oral tablet 20 mg, 1, tablet, By Mouth, Daily, # 30 tablet, Refills 0, Tot. Refills 0, Maintenance, 06/13/22 0:34:00 EDT, Route to Pharmacy Electronically, [facility]/pharmacy #[id number], Partial fill upon patient request if the prescription is for a schedule II opioid drug.... Start Date: 06/13/22 Stop Date: 07/13/22 Status: Ordered ferrous sulfate 220 mg/5 ml oral elixir 7.5 mL = 330 mg, By Mouth, Every Saturday, Saturday and Saturday, mix with a glass of orange juice, # 120 mL, 5 Refills, Maintenance, 12/21/22 9:14:00 EDT, [place], [id number], Partial fill upon patient request if the prescription is for a schedul... Start Date: 12/21/22 Stop Date: 06/19/23 Status: Ordered ferrous sulfate 325 mg oral tablet 1 tablet = 325 mg, By Mouth, Every Saturday, Saturday and Saturday, # 90 tablet, 3 Refills, Maintenance, 12/14/22 17:49:00 EDT, Tablet, [id number], Partial fill upon patient request if the prescription is for a schedule II opioid drug., 165, cm,... Start Date: 12/14/22 Status: Ordered NuLYTELY with Flavor Packs oral [...] Refills, Maintenance, 06/21/22 11:45:00 EDT, CR Tablet, [facility]/pharmacy #[id number], Partial fill upon patient request [...] II Confirmed Active Patient Care team information Care Team Personnel Name: Lucina Frances DO Position: [facility] Outreach Member Role: PCP Address: Address: [address] [place] [address]- Name: Mari Gomez Position: [facility] Outreach Member Role: Lifetime Consulting Physician Care Team Related Persons Name: JOEL OBRIEN Name: MIKEY GLADYS Address: home [address] [place] [address]
--- OUTSIDE RECORDS SUMMARY | 2023-05-08 09:48 | XMS_ITS | Continuity of Care Document ---
Author Name Unknown Organization [facility] Address [address], [address], [address] [place] [address]- Care Team Providers Care Passenger Barge Master Name Role Phone Lucina Frances DO Primary Care Physician [phone] [place] [facility] [place]21 [facility] [address], [address] Floor, [address] [place] [id number] Attending Physician: Azul Varela Admitting Physician: Azul Varela Referring Physician: Admtr, Ar8 Allergies, Adverse Reactions, Alerts Substance Reaction Severity Status penicillins Active Medications SUMAtriptan 50 mg oral tablet 1 tablet, By Mouth, Daily, PRN NEEDED FOR MIGRAINE HEADACHE,INSTR, MAY REPEAT DOSE AFTER 2 HOURSUP TO A MAXIMUM OF 2 IN 24 HOUR PERIOD. NO MORE THAN 3 DAYS OF USE PER WEEK., # 9 tablet, 0 Refills, Soft Stop, 01/12/21 13:50:00 EDT, [id number] Start Date: 01/12/21 Status: Ordered
--- OUTSIDE RECORDS SUMMARY | 2023-05-08 09:48 | XMS_ITS | Continuity of Care Document ---
Author Name Unknown Organization [facility] Address [address], [address] Floor, [address] [place] [id number]- Care Team Providers Care Software Implementation Project Manager Name Role Phone Lucina Frances DO Primary Care Physician [phone] Encounter [facility] [place] Date(s): 10/25/20 - 11/24/20 [facility] [address], [address], [address] [place] [id number] Allergies, Adverse Reactions, Alerts Substance Reaction Severity Status penicillins Active Medications amitriptyline 25 mg oral tablet See Instructions, Take 2 pills PO QHS x 1 week, then 1 pill QHS x 1 week, then 1 pill every other day until pills run out to wean off., # 25 tablet, Refills 0, Tot. Refills 0, Maintenance, 11/10/20 17:56:00 EST, Instructions Replace Required Details,... Start Date: 11/10/20 Status: Ordered SUMAtriptan 50 mg oral tablet 1 tablet = 50 mg, By Mouth, Daily, PRN for migraine headache, may repeat dose after 2 hours up to amaximum of 2 in 24 hour period. No more than 3 days of use per week., # 9 tablet, 0 Refills, Maintenance, 11/10/20 17:59:00 EST, Tablet, [facility] Start Date: 11/10/20 Status: Ordered
--- OUTSIDE RECORDS SUMMARY | 2023-05-08 09:48 | XMS_ITS | Continuity of Care Document ---
Author Name Unknown Organization [facility] [place] Address [address] [place] [address]- Care Team Providers Care Cancer Registry Manager Name Role Phone Lucina Frances DO Primary Care Physician [phone] Encounter [facility] Date(s): 12/03/22 - 01/02/23 [facility] [place] [address] [place] [address]- Attending Physician: Azul Varela Admitting Physician: AdmtrAzul Referring Physician: [id number] Allergies, Adverse Reactions, Alerts Substance Reaction Severity Status penicillins Active Medications albuterol (OP) 0 Refills, Maintenance, 2 Start Date: 06/20/22 Status: Ordered famotidine 20 mg oral tablet 20 mg, 1, tablet, By Mouth, Daily, # 30 tablet, Refills 0, Tot. Refills 0, Maintenance, 06/13/22 0:34:00 EDT, Route to Pharmacy Electronically, [facility]/pharmacy #[id number], Partial fill upon patient request if the prescription is for a schedule II opioid drug.... Start Date: 06/13/22 Stop Date: 07/13/22 Status: Ordered ferrous sulfate 220 mg/5 ml oral elixir 7.5 mL = 330 mg, By Mouth, Every Saturday, Saturday and Saturday, mix with a glass of orange juice, # 120 mL, 5 Refills, Maintenance, 12/21/22 9:14:00 EDT, [place], [facility]/pharmacy #[id number], Partial fill upon patient [...] Team Personnel Name: Lucina Frances DO Position: [facility] Outreach Member Role: PCP Address: Address: [address] [place] [address]- Name: Mari Gomez Position: S Outreach Member Role: Lifetime Consulting Physician Care Team Related Persons Name: MIKEY GLADYS Address: home [address] [place] [address]
--- OUTSIDE RECORDS SUMMARY | 2023-05-08 09:48 | XMS_ITS | Continuity of Care Document ---
Author Name Unknown Organization [facility] [place] Address [address] [place] [address]- Care Team Providers Care Straightener Hand Name Role Phone Lucina Frances DO Primary Care Physician [phone] Encounter [facility] Date(s): 06/15/22 - 07/20/22 [facility] [place] [address] [place], [place] [address] Attending Physician: Tyrell Ocampo MD Allergies, Adverse Reactions, Alerts Substance Reaction Severity Status penicillins Active Medications albuterol (OP) 0 Refills, Maintenance, 2 Start Date: 06/20/22 Status: Ordered Citrucel 500 mg oral tablet 2 tablet = 1,000 mg, By Mouth, Daily, for 60 days, with plenty of water., # 120 tablet, 1 Refills, Acute 10/19/22 11:46:00 EST, 06/21/22 11:46:00 EDT, [facility]/pharmacy #[id number], Partial fill upon patient request [...] Refills, Maintenance, 06/21/22 11:45:00 EDT, CR Tablet, [facility]/pharmacy #[id number], Partial fill upon patient request [...] Personnel Name: Lucina Frances DO Address: Address: [address] [place] [address]
--- OUTSIDE RECORDS SUMMARY | 2023-05-08 09:48 | XMS_ITS | Continuity of Care Document ---
Author Name Unknown Organization [facility] Address Unknown Care Team Providers Care Professor Of Public Administration Name Role Phone Lucina Frances DO Primary Care Physician [place] [facility] [place]): 11/21/21 - 12/21/21 [facility] Attending Physician: Azul Varela Admitting [...] # 9 tablet, 0 Refills, Soft Stop, 12/04/21 11:02:00 EDT, [id number] Start Date: 12/04/21 Status: Ordered
--- OUTSIDE RECORDS SUMMARY | 2023-05-08 09:48 | XMS_ITS | Continuity of Care Document ---
Author Name Unknown Organization [facility] Address Unknown Care Team Providers Care Obstetrics Technician Name Role Phone Lucina Frances DO Primary Care Physician Encounter [facility] [place] ACCT R [id number] Date(s): 10/26/21 - 12/21/21 [facility] Attending Physician: Romelia Manuel Admitting Physician: [...]
--- OUTSIDE RECORDS SUMMARY | 2023-05-08 09:48 | XMS_ITS | Continuity of Care Document ---
Author Name Unknown Organization [facility] Address [address] [facility], [address], [address] [place] [address]- Care Team Providers Care Phlebotomy Coordinator Name Role Phone Lucina Frances DO Primary Care Physician [phone] [place] [facility] [place]): [place] 04/19/21 [facility] [address], [address], [address] [place] [address] Attending Physician: Ana Leon MD Admitting Physician: Ana Leon MD Allergies, Adverse Reactions, Alerts Substance Reaction Severity Status penicillins Active Medications SUMAtriptan 50 mg oral tablet 1 tablet, By Mouth, Daily, PRN NEEDED FOR MIGRAINE HEADACHE,INSTR, MAY REPEAT DOSE AFTER 2 HOURSUP TO A MAXIMUM OF 2 IN 24 HOUR PERIOD. NO MORE THAN 3 DAYS OF USE PER WEEK., # 9 tablet, 0 Refills, Soft Stop, 01/12/21 13:50:00 EDT, [id number] Start Date: 01/12/21 Status: Ordered
--- OUTSIDE RECORDS SUMMARY | 2023-05-08 09:48 | XMS_ITS | Continuity of Care Document ---
Author Name Unknown Organization [facility] [place] Address [address] [place] [address]- Care Team Providers Care Accountant Tax Name Role Phone Lucina Frances DO Primary Care Physician [phone] [facility] Date(s): 06/20/22 - 07/20/22 [facility] [place] [address] [place], [place] [address] Attending Physician: Azul Varela Admitting Physician: Admtr, [id number] Referring Physician: Admtr, Ar8 Allergies, Adverse Reactions, Alerts Substance Reaction Severity Status penicillins Active Medications albuterol (OP) 0 Refills, Maintenance, 2 Start Date: 06/20/22 Status: Ordered Citrucel 500 mg oral tablet 2 tablet = 1,000 mg, By Mouth, Daily, for 60 days, with plenty of water., # 120 tablet, 1 Refills, Acute 10/19/22 11:46:00 EST, 06/21/22 11:46:00 EDT, [facility]/pharmacy #[id number], Partial fill upon patient request if [...] Personnel Name: Lucina Frances DO Address: Address: [address] [place] [id number]
--- OUTSIDE RECORDS SUMMARY | 2023-05-08 09:48 | XMS_ITS | Continuity of Care Document ---
Author Name Unknown Organization [facility] Address [address], [address], [address] [place] [address]- Care Team Providers Care Axle Polisher Name Role Phone Lucina Frances DO Primary Care Physician [phone] [place] [facility] [place]): [place]21 - 04/27/21 [facility] [address], [address], [address] [place] [id number] Attending Physician: Mike Coker MD Admitting Physician: Mike Coker MD Allergies, Adverse Reactions, Alerts Substance Reaction Severity Status penicillins Active Medications SUMAtriptan 50 mg oral tablet 1 tablet, By Mouth, Daily, PRN NEEDED FOR MIGRAINE HEADACHE,INSTR, MAY REPEAT DOSE AFTER 2 HOURSUP TO A MAXIMUM OF 2 IN 24 HOUR PERIOD. NO MORE THAN 3 DAYS OF USE PER WEEK., # 9 tablet, 0 Refills, Soft Stop, 01/12/21 13:50:00 EDT, [facility] [id number] Start Date: 01/12/21 Status: Ordered
--- OUTSIDE RECORDS SUMMARY | 2023-05-08 09:48 | XMS_ITS | Continuity of Care Document ---
Author Name Unknown Organization [facility] Address Unknown Care Team Providers Care Transit Coach Operator Name Role Phone Lucina Frances DO Primary Care Physician [phone] Encounter [facility] [place] ACCT R [id number] Date(s): 08/25/21 - 11/23/21 [facility] Attending Physician: Romelia Manuel Admitting Physician: Romelia Manuel Allergies, Adverse Reactions, Alerts Substance Reaction Severity Status penicillins Active Medications SUMAtriptan 50 mg oral tablet 1 tablet, By Mouth, Daily, PRN NEEDED FOR MIGRAINE HEADACHE,INSTR, MAY REPEAT DOSE AFTER 2 HOURSUP TO A MAXIMUM OF 2 IN 24 HOUR PERIOD. NEEDS NEUROLOGY FOLLOW UP., # 9 tablet, 0 Refills, Soft Stop, 11/06/21 10:54:00 EST, [facility]/pharmacy #[id number] Start Date: 11/06/21 Status: Ordered
[2023-05-08 09:49] VITALS: BP 124/74; BMI 38.3
== END 2023-05-08 10:05 | disposition home or self-care (01) ==
LOC: HO.HWS 09:46
PROVIDERS: PCP Family Medicine; Visit Provider Obstetrics & Gynecology
DX: Z01.419 Encounter for gynecological examination (general) (routine) without abnormal findings (principal)
CPT/HCPCS: 99395

== ENCOUNTER 2023-06-26 07:56 | Outpatient (REF) | payer MEDICAID, SELFPAY ==
[2023-06-26 08:26] LABS: MANUAL DIFF FLAG NO
[2023-06-26 08:56] LABS: White Blood Count 7.2 X10*3/uL (4.8-10.8)
[2023-06-26 08:57] LABS: Basophils Percent Auto 0.4 % (0-2); Eosinophils Absolute Auto 0.1 X10*3/uL (0.0-0.4); Eosinophils Percent Auto 1.8 % (0-4); Hematocrit 37.5 % (37.0-47.0); Imm Gran Abs Auto 0.02 X10*3/uL (0.00-0.03); Imm Gran Pct Auto 0.3 % (0.0-0.4); Lymphocytes Absolute Auto 2.5 X10*3/uL (1.2-4.9); Mean Corpuscular Hemoglobin 26.8 pg (27.0-33.0); Mean Corpuscular Volume 83.7 fL (80.0-98.0); Monocytes Absolute Auto 0.5 X10*3/uL (0.1-1.2); Monocytes Percent Auto 6.3 % (2-11); Neutrophils Absolute Auto 4.1 x10*3/uL (2.0-8.3); Neutrophils Percent Auto 56.2 % (45-73); Platelet Count 354 X10*3/uL (160-400); Red Blood Count 4.48 X10*6/uL (4.20-5.50); Red Cell Distribution Width 13.9 % (11.0-16.0)
[2023-06-26 09:10] LABS: Estimated Average Glucose 108 mg/dL; Hemoglobin A1c % 5.4 % (<6.0)
[2023-06-26 09:31] LABS: Alanine Aminotransferase 22 U/L (0-31); Albumin Level 4.2 g/dL (3.5-5.0); Alkaline Phosphatase 81 U/L (39-117); Anion Gap 9 (12-20); Aspartate Amino Transferase 19 U/L (5-31); Bilirubin Direct 0.1 mg/dL (0.0-0.5); Bilirubin Total 0.4 mg/dL (0.0-1.0); Blood Urea Nitrogen 9 mg/dL (9-16); Calcium 9.7 mg/dL (8.4-10.2); Carbon Dioxide 26 mmol/L (22-29); Chloride 107 mmol/L (96-108); Cholesterol 175 mg/dL (<200); Estimated Glomerular Filt Rate > 60; Glucose Random 87 mg/dL (60-115); HDL Cholesterol 42 mg/dL (>40); LDL Cholesterol Calculated 108 mg/dL (<100); Sodium 138 mmol/L (135-145); Total Protein 7.7 g/dL (6.5-8.0); Triglycerides 127 mg/dL (<150)
[2023-06-26 09:53] LABS: HBS Num1 0.29 mIU/mL (0-7.99); HBsAGNum1 0.31 S/CO (0.00-0.99); HIV AB/AG Nonreactive (Nonreactive); HIV Num 1 0.05 S/CO (0.00-0.99); Hepatitis B Surface Antigen Negative (Negative); Syphilis Screen Nonreactive (Nonreactive); ~HepC Num1 0.07 S/CO (0.00-0.79); ~Hepatitis B Surface Antibody NONREACTIVE (Nonreactive); ~Hepatitis C Antibody Nonreactive (Nonreactive)
[2023-06-26 09:58] LABS: Free T4 (Free Thyroxine) 0.82 ng/dL (0.71-1.85); Thyroid Stimulating Hormone 1.45 uIU/mL (0.32-4.0); Vitamin D 25-OH Total 26.4 ng/mL (>30)
[2023-06-26 11:32] LABS: CT PCR NOT DETECTED (Not Detect.); NG PCR NOT DETECTED (Not Detect.)
[2023-06-28 02:17] LABS: Herpes Simplex Type 1 IgG >58.00 index; Herpes Simplex Type 2 IgG 7.04 index
== END 2023-06-26 07:57 | disposition home or self-care (01) ==
LOC: HO.LAB 07:56
PROVIDERS: PCP Family Medicine; Visit Provider Family Medicine
DX: Z11.3 Encounter for screening for infections with a predominantly sexual mode of transmission (principal)
CPT/HCPCS: 0353U; 80048; 80061; 80076; 82306; 83036; 84439; 84443; 85025; 86695; 86696; 86706; 86780; 86803; 87340; 87389

== ENCOUNTER 2024-07-16 14:37 | Outpatient (REF) | payer SELFPAY ==
[2024-07-16 17:09] LABS: Hematocrit 39.2 % (37.0-47.0); Hemoglobin 12.8 g/dl (12.0-16.0); Mean Corpuscular HGB Conc 32.7 g/dl (31.0-35.0); Mean Corpuscular Hemoglobin 27.4 pg (27.0-33.0); Mean Corpuscular Volume 83.9 fL (80.0-98.0); Mean Platelet Volume 10.1 fL (9.4-12.3); Platelet Count 429 X10*3/uL (160-400); Red Blood Count 4.67 X10*6/uL (4.20-5.50); Red Cell Distribution Width 13.4 % (11.0-16.0); White Blood Count 10.2 X10*3/uL (4.8-10.8)
[2024-07-16 17:33] LABS: Alanine Aminotransferase 46 U/L (0-31); Albumin Level 4.6 g/dL (3.5-5.0); Alkaline Phosphatase 98 U/L (39-117); Anion Gap 13 (12-20); Aspartate Amino Transferase 34 U/L (5-31); Bilirubin Direct 0.2 mg/dL (0.0-0.5); Bilirubin Total 0.8 mg/dL (0.0-1.0); Blood Urea Nitrogen 9 mg/dL (9-16); Carbon Dioxide 22 mmol/L (22-29); Chloride 106 mmol/L (96-108); Cholesterol 202 mg/dL (<200); Estimated Glomerular Filt Rate > 60; Glucose Random 101 mg/dL (60-115); HDL Cholesterol 41 mg/dL (>40); LDL Cholesterol Calculated 129 mg/dL (<100); Potassium 3.6 mmol/L (3.3-5.1); Sodium 137 mmol/L (135-145); Total Protein 8.8 g/dL (6.5-8.0); Triglycerides 163 mg/dL (<150)
[2024-07-16 17:39] LABS: Estimated Average Glucose 111 mg/dL; Hemoglobin A1C 160.4754 umol/L; Hemoglobin A1c % 5.5 % (<6.0); Total Hemoglobin (HGBA1C) 4349.8827 umol/L
[2024-07-16 17:52] LABS: Free T4 (Free Thyroxine) 0.94 ng/dL (0.71-1.85); Thyroid Stimulating Hormone 1.81 uIU/mL (0.32-4.0); Vitamin D 25-OH Total 33.9 ng/mL (>30)
[2024-07-16 18:37] LABS: CT PCR NOT DETECTED (Not Detect.); NG PCR NOT DETECTED (Not Detect.)
[2024-07-17 08:38] LABS: HBS Num1 1.72 mIU/mL (0-7.99); HBsAGNum1 0.37 S/CO (0.00-0.99); HIV Num 1 2.01 S/CO (0.00-0.99); Hepatitis B Surface Antigen Negative (Negative); ~HepC Num1 0.13 S/CO (0.00-0.79); ~Hepatitis B Surface Antibody NONREACTIVE (Nonreactive); ~Hepatitis C Antibody Nonreactive (Nonreactive)
[2024-07-17 10:56] LABS: HIV AB/AG Nonreactive (Nonreactive); HIV Num 2 0.05 S/CO; HIV Num 3 0.05 S/CO
[2024-07-20 12:49] LABS: RPR Rapid Plasma Reagin NON-REACTIVE (NON-REACTIVE)
== END 2024-07-16 14:38 | disposition home or self-care (01) ==
LOC: HO.HHCL 14:37
PROVIDERS: Visit Provider Family Medicine
DX: Z00.00 Encounter for general adult medical examination without abnormal findings (principal); F32.A Depression, unspecified; G43.909 Migraine, unspecified, not intractable, without status migrainosus; J45.30 Mild persistent asthma, uncomplicated; J30.9 Allergic rhinitis, unspecified; R12 Heartburn; Z68.39 Body mass index [BMI] 39.0-39.9, adult; Z23 Encounter for immunization; Z13.1 Encounter for screening for diabetes mellitus
CPT/HCPCS: 36415; 80048; 80061; 80076; 82306; 83036; 84439; 84443; 85027; 86592; 86706; 86803; 87070; 87340; 87389; 87491; 87591

== ENCOUNTER 2024-08-28 15:22 | Emergency (ER) | payer OTHER, SELFPAY ==
--- NOTE | ~2024-08-28 | XR_ITS ---
EXAMINATION: XR CHEST CLINICAL INFORMATION: sob, cough COMPARISON: CXR on 11/10/20 TECHNIQUE: Frontal view of the chest was obtained. FINDINGS: No significant abnormality is noted involving the heart, lungs, mediastinum, bony thorax or soft tissues. XR/XR chest 1V IMPRESSION: Unremarkable examination. Electronically signed by: Kasandra Nichols MD 08/28/2024 05:59 PM [facility]
[2024-08-28 15:26] VITALS: BP 153/85; PULSE 96; RESP 20; TEMP 36.3; O2SAT 100; BMI 44.3
--- NOTE | 2024-08-28 15:27 | ED.GENADULT ---
HPI - General Adult General Chief complaint: Upper Respiratory Symptoms Stated complaint: SOB, cough Time Seen by Provider: 08/28/24 16:27 Source: patient Mode of arrival: ambulatory Limitations: no limitations History of Present Illness ED Provider: Medardo Anglin PA-C HPI narrative: 29 year old female with PMH of asthma, seasonal allergies, and migraines seen in the ED for concerns regarding ongoing and progressive cold-like symptoms for approx 1 week. Reports pleuritic chest pain, SOB, and productive cough. Daughter at home tested positive for RSV 1.5 weeks ago. Has used albuterol inhaler as needed for asthma related symptoms but has not tried other OTC medications. Denies palpitations, numbness/tingling in extremities, generalized weakness. Denies fever, chills, nausea, vomiting, abdominal pain, diarrhea, constipation. Denies hematemesis, hemoptysis, hematuria, dysuria. MD complaint: cough Onset (ago): week(s) (1) Location: head and chest Severity: moderate Quality: other (chest pressure; worsens with deep breath) Pain Consistency: constant Relieving factors: none Exacerbating factors: other (speaking; exertion ) Associated symptoms: chest pain, cough and shortness of breath Treatments prior to arrival: other (albuterol inhaler ) Related Data Home Medications ?Medication ?Instructions ?Recorded ?Confirmed albuterol sulfate 90 mcg/actuation 1 inh inhalation QID PRN Shortness 12/05/20 05/22/21 aerosol inhaler Of Breath Or Wheezing cholecalciferol (vitamin D3) 50 50 mcg PO DAILY 12/05/20 mcg (2,000 unit) capsule cetirizine 10 mg capsule (Zyrtec) 10 mg PO DAILY PRN Allergy Symptoms 04/26/21 05/22/21 sumatriptan succinate 50 mg tablet 0 mg PO 12/11/21 Previous Rx's ?Medication ?Instructions ?Recorded benzonatate 100 mg capsule 100 mg PO TID PRN cough #20 caps 08/28/24 Allergies Allergy/AdvReac Type Severity Reaction Status Date / Time Penicillins [PENICILLINS] Allergy Unknown HIVES Verified 08/28/24 15:28 Codeine Sulfate Allergy Unknown tachycardia Uncoded 05/08/23 09:52 Review of Systems Review of Systems: Yes all other systems are reviewed and are negative PMFSH Past Medical History Medical History ASCUS of cervix with negative high risk HPV Asthma History of cardiac murmur as a child Increased BMI Migraine headache Seasonal allergies Surgical History Hx of tubal ligation No significant past surgical history Family History Family History Maternal Grandmother Breast CA Colon cancer Maternal Aunt Breast CA Family/Other Colon cancer Social History Social History Alcohol intake: never Patient Tobacco Use Status: Never used Tobacco Advance Directives: No Advance Directives Information Provided: No Physical Exam ED Vital Signs: Vital Signs - 24 hr 08/28/24 15:26 Temperature 97.4 F Pulse Rate 96 Respiratory Rate 20 Blood Pressure 153/85 H Pulse Oximetry 100 Oxygen Delivery Method Room Air BMI result Body Mass Index 44.3 Appearance: Alert. Oriented X3. No acute distress. Head: normocephalic, atraumatic. Eyes: Pupils equal, round and reactive to light. ENT: Pharynx normal. No tonsillar swelling or exudate. Neck: Normal inspection. Neck supple. CVS: Normal heart rate and rhythm. Pulses normal. Respiratory: No respiratory distress. Breath sounds normal. dry cough noted Abdomen: Soft and nontender. Skin: Skin warm and dry. Normal skin color. Normal skin turgor. No rashes. Extremities: No lower extremity edema. No joint swelling. Neuro/psych: Oriented X 3. CN II-XII intact. Normal speech and cognition. Course Course Course Narrative: This is an RME done by SANDY Tyler: Additional HPI, ROS, PE not included below will be deferred to primary provider. 29-year-old female history of asthma, presenting to the emergency department with cough, fatigue, malaise, myalgias, shortness of breath and chest discomfort cough ongoing for the past 5 days. Daughter at home positive for RSV. Patient overall feeling unwell. Eating and driking still. Appearance: Alert.? Oriented X3.? No acute cardiopulmonary distress distress.? Head: Normocephalic, atraumatic, no step-offs or deformities CVS: Pulses normal.? Respiratory: No respiratory distress.? Abdomen: Soft and nontender.? Skin: ? Normal skin color. Extremities: 5/5 strength to bilateral upper and lower extremities Back: No midline tenderness, no C-spine tenderness, full range of motion, No CVA tenderness bilaterally Neuro: Oriented X 3.? No motor deficit.? No sensory deficit. Medical Decision Making Medical Decision Making [facility] Narrative: 29 year old female with PMH of asthma, seasonal allergies, and migraines seen in the ED for concerns regarding ongoing and progressive cold-like symptoms for approx 1 week. Reports pleuritic chest pain, SOB, and productive cough. Daughter at home tested positive for RSV 1.5 weeks ago. VSS on arrival. Lungs are clear throughout, dry cough noted. DDX - Covid/Flu/RSV - Pneumonia - Bronchitis - asthma exacerbation - Strep pharyngitis; low suspicion for - Mononucleosis; low suspicion for Plan: - Covid/Flu/RSV negative - Chest X-ray negative - most likely viral etiology. no evidence of asthma exacerbation - stable for d/c home with antitussive and supportive care Differential Diagnosis Differential Diagnoses: The differential diagnosis associated with the presentation includes as above Lab Data [facility] Lab Attestation statement: I reviewed the patient's lab results. negative viral swab Labs: Lab Results 08/28/24 Range/Units 15:34 Influenza Type A (PCR) NEGATIVE (Negative) Influenza Type B (PCR) NEGATIVE (Negative) RSV RNA Qual (PCR) NEGATIVE (Negative) SARS-CoV-2 RNA (RT-PCR) NEGATIVE (Negative) Independent Interpretation I performed an independent interpretation of an: Plain X-Ray Interpretation: hypoexpanded. no infiltrate Radiology Impression Discussion of test interpretation with radiology: I have reviewed the radiologist's reading. External Record Review External record reviewed: Outpatient record, Prior outpatient labs and Prior outpatient radiology Prescription Management I considered prescription management with: Antibiotic and Other (prednisone) Chronic Conditions Patient?s care impacted by: Other (asthma) Critical Care Time Critical Care Time Critical Care Time: No Discharge Plan Discharge Clinical Impression: Viral URI with cough Patient Disposition: Home, Self-Care Instructions: Upper Respiratory Infection (DC) Additional Instructions: You tested negative for COVID, Flu and RSV Your chest x-ray was normal Your symptoms are likely due to a viral cause Treatment is rest and supportive care - take over the counter cold/flu medications as needed for your symptoms Take the prescribed cough medication as needed Continue your inhaler as needed Follow up with your doctor If you develop new or worsening symptoms call 911 or come back to the ER for further evaluation. Prescriptions: New benzonatate 100 mg capsule 100 mg PO TID PRN (Reason: cough) Qty: 20 0RF No Action cholecalciferol (vitamin D3) 50 mcg (2,000 unit) capsule 50 mcg PO DAILY albuterol sulfate 90 mcg/actuation HFA aerosol inhaler 1 inh inhalation QID PRN (Reason: Shortness Of Breath Or Wheezing) sumatriptan succinate 50 mg tablet 0 mg PO Zyrtec 10 mg capsule 10 mg PO DAILY PRN (Reason: Allergy Symptoms) Referrals: Lucina Frances DO [Primary Care Provider] - Stand Alone Forms: Work/School Release Print Language: Nepalese
[2024-08-28 17:01] LABS: Influenza A PCR NEGATIVE (Negative); Influenza B PCR NEGATIVE (Negative); Resp Syncy Virus RNA Qual PCR NEGATIVE (Negative); SARS COV2 PCR INHOUSE NEGATIVE (Negative)
[2024-08-28 18:39] VITALS: BP 153/85; PULSE 96; RESP 20; TEMP 36.3; O2SAT 100
== END 2024-08-28 18:39 | disposition home or self-care (01) ==
PROVIDERS: Physician Assistant; Emergency Provider Emergency Medicine; PCP Family Medicine
DX: J06.9 Acute upper respiratory infection, unspecified (principal); R05.9 Cough, unspecified; R06.02 Shortness of breath; Z03.818 Encounter for observation for suspected exposure to other biological agents ruled out; J45.909 Unspecified asthma, uncomplicated
CPT/HCPCS: 0241U; 71045; 99282; 99283

== ENCOUNTER 2024-10-01 12:13 | Outpatient (REF) | payer OTHER, SELFPAY | END 2024-10-01 12:14 | disposition home or self-care (01) | LOC: HO.LNP 12:13 | PROVIDERS: Visit Provider Family Medicine | DX: R07.9 Chest pain, unspecified (principal) | CPT/HCPCS: 87070; 87147 ==

== ENCOUNTER 2025-01-01 12:53 | Outpatient (REF) | payer OTHER, SELFPAY ==
--- OUTSIDE RECORDS SUMMARY | 2025-01-01 13:26 | XMS_ITS | Encounter Summary ---
Author Organization [employer] Address [address] [place] [address] [address] [place] [address] Care Team Providers Care Brazing Machine Setter Name Role Phone Lucina Frances DO Primary Care Provider Encounter Details Date Type Department Care Team (Latest Contact Info) Description 01/01/2025 11:45 AM EDT Office Visit [facility] [address] [place], [place] [phone] Lucina Frances DO [address], [place] [phone] Nonintractable chronic migraine Social History Tobacco Use Types Packs/Day Years Used Date Smoking Tobacco: Never Passive Smoke Exposure: Never Smokeless Tobacco: Never Alcohol Use Standard Drinks/Week Comments Never 0 (1 standard drink = 0.6 oz pur e alcohol) Alcohol Answer Date Recorded Frequency of Alcohol Consumption Not on file 07/19/2023 Average Number of Drinks Not on file 023 Frequency of Binge Drinking Not on file 06/24 Score 0 07/19/2023 Depression Answer Date Recorded Patient Health Questionnaire-9 Score 0 07/19/2023 Patient Health Questionnaire-9 Score 0 07/19/2023 Last PHQ-9: Questionnaire Data Not on file 1 Housing Stability Answer Date Recorded What is your housing situation today? I have tavares doherty 07/09/[address] you li ve. Do you have problems with any of the following? None of the above 07/09/2023 Food Insecurity Answer Date Recorded Within the past 12 months, y ou worried that your food would run out before you got money to buy more: Never True 07/09/2023 Within the past 12 months,th e food you bought just didn't last and you didn't have enough money to get more: Never True Transportation Answer Date Recorded In the past 12 months, has l ack of transportation kept you from medical appts, meetings, work or from getting things needed for daily living? No 07/09/2023 Utilities Answer Date Recorded In the past 12 months, has t he electric, gas, oil or water company threatened to shut off services in your home? No 07/09/2023 Depression Answer Date Recorded Patient Health Questionnaire-2 Score 0 09/30/2024 Comments No Sex and Gender Information Value Date Recorded Sex Assigned at Female 07/23/2022 10:16 AM EDT Legal Sex Female 10:16 AM EDT Gender Identity Female 07/23/2022 10:16 AM EDT Sexual Orientation Choose not to disclose 2021 10:16 AM EDT documented as of this encounter Last Filed Vital Signs Vital Sign Reading Time Taken Comments Blood Pressure 126/60 01/01/2025 12:01 PM EDT Pulse 80 01/01/2025 12:01 PM EDT Temperature 36.2 ??C (97.2 ??F) 01/01/2025 12:01 PM E DT Respiratory Rate 19 01/01/2025 12:01 PM EDT Oxygen Saturation 100% 01/01/2025 12:01 PM EDT Inhaled Oxygen Concentration - - Weight 104 kg (230 lb) 01/01/2025 12:01 PM EDT Height 165.1 cm (5' 5 ) 01/01/2025 12:01 PM EDT Body Mass Index 38.27 01/01/2025 12:01 PM EDT documented in this encounter Plan of Treatment Scheduled Orders Name Type Priority Associated Diagnoses Orde r Schedule T4, Free Lab Routine Nonintractable chronic migraine Expected: 01/01/2025 (Approximate), Expires: 01/01/2026 Lipid Panel, Standard Lab Routine Nonintractable chronic migraine Expected: 01/01/2025 (Approximate), Expires: 01/01/2026 TSH Lab Routine Nonintractable chronic migraine Expected: 01/01/2025 (Approximate), Expires: 01/01/2026 Vitamin D, 25-Hydroxy, Total, Immunoassay Lab Routine Nonintractable chronic migraine Expected: 01/01/2025 (Approximate), Expires: 01/01/2026 Hepatic Function Panel Lab Routine Nonintractable chronic migraine Expected: 01/01/2025 (Approximate), Expires: 01/01/2026 Hemoglobin A1c Lab Routine Nonintractable chronic migraine Expected: 01/01/2025 (Approximate), Expires: 01/01/2026 CBC Lab Routine Nonintractable chronic migraine Expected: 01/01/2025, Expires: 01/01/2026 Basic Metabolic Panel Lab Routine Nonintractable chronic migraine Expected: 01/01/2025 (Approximate), Expires: 01/01/2026 Hepatitis B surface antigen, EIA Lab Routine Nonintractable chronic migraine Expected: 01/01/2025 (Approximate), Expires: 01/01/2026 Chlamydia/N. Gonorrhoeae RNA, TMA, Urogenitial Microbiology Routine Nonintractable chronic migraine Ordered: 01/01/2025 HIV-1/2 Antigen and Antibodies, Fourth Generation, with Reflexes Lab Routine Nonintractable chronic migraine Expected: 01/01/2025 (Approximate), Expires: 01/01/2026 Hepatitis C Antibody with Reflex to HCV, RNA, Quantitative, Real-Time PCR Lab Routine Nonintractable chronic migraine Expected: 01/01/2025, Expires: 01/01/2026 RPR (Monitor) with Reflex to??Titer Lab Routine Nonintractable chronic migraine Expected: 01/01/2025, Expires: 01/01/2026 Hepatitis B Surface Antibody, Qualitative Lab Routine Nonintractable chronic migraine Expected: 01/01/2025 (Approximate), Expires: 01/01/2026 documented as of this encounter Procedures Procedure Name Priority Date/Time Associated Diagnosis Comments POCT GLYCATED HEMOGLOBIN, TOTAL Routine 01/01/2025 12:28 PM EDT Nonintractable chronic migraine POCT GLUCOSE Routine 01/01/2025 12:27 PM EDT Nonintractable chronic migraine documented in this encounter Results * POCT HGB A1C (01/01/2025 12:28 PM EDT) Hemoglobin A1C 6.0 4.0 - 6.0 % QC Media Lot # [id number] Lot# Expiration Date Blood 01/01/2025 12:2 8 PM EDT Lucina Frances DO POINT OF CARE TEST ENTER/CADEN T ORDERABLES Final Result * POCT Glucose (01/01/2025 12:27 PM EDT) Glucose Blood, POC 132 60 - 200 mg/dL QC Media Lot # [id number] Lot# Expiration Date Blood Capillary blood specimen / Unknown 01/01/2025 12:27 PM EDT Lucina Frances DO POINT OF CARE TEST ENTER/CADEN T ORDERABLES Final Result documented in this encounter Visit Diagnoses Diagnosis Nonintractable chronic migraine documented in this encounter Additional Health Concerns Assessment Noted Time PHQ-9 Depression Total Score: 0 07/19/20 23 10:33 AM EDT documented as of this encounter Care Teams Brazing Machine Setter Relationship Specialty Start Date End Date Lucina Frances DO [address] [place] [address] PCP - General Family Medicine 07/16/16 documented as of this encounter
--- OUTSIDE RECORDS SUMMARY | 2025-01-01 13:26 | XMS_ITS | Encounter Summary ---
Author Organization [employer] Address [address] [place] [address] [address] [place] [address] Care Team Providers Care Fbi Field Agent Name Role Phone Lucina Frances DO Primary Care Provider + [phone] Reason for Visit * Reason Comments Med Refill Encounter Details Date Type Department Care Team (Late st Contact Info) Description 10/02/2024 Refill [facility] [address] [place], [place] [phone] Lucina Frances DO [address] [place] [address] Social History Tobacco Use Types Packs/Day Years [...] AM EDT documented as of this encounter Plan of Treatment Not on file documented as of this encounter Visit Diagnoses Not on filedocumented in this encounter Additional Health Concerns Assessment Noted Time PHQ-9 Depression Total Score: 0 07/19/20 23 10:33 AM EDT documented as of this encounter Care Teams Fbi Field Agent Relationship Specialty Start Date End Date Lucina Frances DO [address] [place] [address] PCP - General Family Medicine 07/16/16 documented as of this encounter
--- OUTSIDE RECORDS SUMMARY | 2025-01-01 13:26 | XMS_ITS | Encounter Summary ---
Author Organization [employer] Address [address] [place] [address] [address] [place] [address] Care Team Providers Care Community Relations Representative Name Role Phone YvroseLucina Primary Care Provider [phone] Encounter Details Date Type Department Care Team (Latest Contact Info) Description 01/01/2025 Travel Social History Tobacco Use Types Packs/Day Years [...] documented as of this encounter Care Teams Community Relations Representative Relationship Specialty Start Date End Date Lucina Frances DO [address] [place] [id number] PCP - General Family Medicine 07/16/16 documented as of this encounter
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
--- OUTSIDE RECORDS SUMMARY | 2025-01-01 13:27 | XMS_ITS | Encounter Summary ---
Author Organization [employer] Address [address] [place] [address] [address] [place] [address] Care Team Providers Care Property Staff Accountant Name Role Phone Lucina Frances DO Primary Care Provider [phone] Reason for Visit * Reason Onset Date Comments Appointment 01/29/2023 Encounter Details Date Type Department Care Team ([facility] st Contact Info) Description 01/29/2023 Telephone [facility] MEDICINE [address] [place], [place] [phone] Lucina Frances DO [address] [place], [place] [phone] Appointment Social History Tobacco Use Types Packs/Day Years Used Date Smoking Tobacco: Never Assessed Depression Answer Date Recorded Patient Health Questionnaire-9 Score 0 12/19/2022 Depression Answer Date Recorded Patient Health Questionnaire-2 Score 0 12/19/2022 Comments Unknown Sex and Gender Information Value Date Recorded Sex Assigned at Female 07/23/2022 10:16 AM EDT Legal Sex Female 10:16 AM EDT Gender Identity Female 07/23/2022 10:16 AM EDT Sexual Orientation Choose not to disclose 2021 10:16 AM EDT COVID-19 Exposure Response Date Recorded In the last 10 days, have yo u been in contact with someone who was confirmed or suspected to have Coronavirus/COVID-19? No / Unsure 01/24/2023 11:26 AM EDT documented as of this encounter Miscellaneous Notes * Telephone Encounter - Tata Jose Corrine - 01/29/2023 1:36 PM EDT Tc from pt requesting an appt with the provider in regards to some concerns pt is having please contact pt at [phone] documented in this encounter Plan of Treatment Not on file documented as of this encounter Visit Diagnoses Not on filedocumented in this encounter Additional Health Concerns Assessment Noted Time PHQ-9 Depression Total Score: 0 12/20/19 23 9:44 AM EDT documented as of this encounter Care Teams Property Staff Accountant Relationship Specialty Start Date End Date Lucina Frances DO [address] [place] [address] PCP - General Family Medicine 07/16/16 documented as of this encounter
--- OUTSIDE RECORDS SUMMARY | 2025-01-01 13:27 | XMS_ITS | Clinical Summary ---
Author Organization [facility] Address [address] [place] [address] Care Team Providers Care Resident Services Director Name Role Phone Unavailable Primary Care Provider Unavailabl e Social History Tobacco Use Types Packs/Day Years Used Date Smoking Tobacco: Never Assessed Comments Unknown Sex and Gender Information Value Date Recorded Sex Assigned at Not on file Legal Sex Female 4:31 AM EST Gender Identity Not on file Sexual Orientation Not on file Plan of Treatment Health Maintenance Due Date Last Done Comments DTaP,Tdap,and Td Vaccines (1 - Tdap) 2013 Hepatitis B Vaccines (1 of 3 - 19+ 3-dose series) 2013 Cervical Cancer Screening: P ap Smear 2015 COVID-19 Vaccine ( - 2023-2 5 season) 2024 Influenza Vaccine (Season Ended) 2025 HIB Vaccines Aged Out No longer eligi ble based on patient's age to complete this topic HPV Vaccines Aged Out No longer eligi ble based on patient's age to complete this topic Hepatitis A Vaccines Aged Out No long er eligible based on patient's age to complete this topic IPV Vaccines Aged Out No longer eligi ble based on patient's age to complete this topic MMR Vaccines Aged Out No longer eligi ble based on patient's age to complete this topic Meningococcal ACWY Vaccine Aged Out N o longer eligible based on patient's age to complete this topic Meningococcal B Vaccine Aged Out No l onger eligible based on patient's age to complete this topic Pneumococcal Vaccine: Pediat rics (0 to 5 Years) and At-Risk Patients (6 to 64 Years) Aged Out No longer eligible b ased on patient's age to complete this topic RSV Immunization Patients Un harjeet 20 months Aged Out No longer eligible b ased on patient's age to complete this topic Varicella Vaccines Aged Out No longer eligible based on patient's age to complete this topic
[2025-01-01 16:13] LABS: Hematocrit 38.8 % (37.0-47.0); Hemoglobin 12.8 g/dl (12.0-16.0); Mean Corpuscular Hemoglobin 28.1 pg (27.0-33.0); Mean Corpuscular Volume 85.3 fL (80.0-98.0); Mean Platelet Volume 10.9 fL (9.4-12.3); Platelet Count 414 X10*3/uL (160-400); Red Blood Count 4.55 X10*6/uL (4.20-5.50); Red Cell Distribution Width 13.4 % (11.0-16.0); White Blood Count 7.9 X10*3/uL (4.8-10.8)
[2025-01-01 16:25] LABS: Estimated Average Glucose 114 mg/dL; Hemoglobin A1C 128.4083 umol/L; Hemoglobin A1c % 5.6 % (<6.0); Total Hemoglobin (HGBA1C) 3415.9746 umol/L
[2025-01-01 16:31] LABS: Alanine Aminotransferase 61 U/L (0-31); Albumin Level 4.3 g/dL (3.5-5.0); Alkaline Phosphatase 102 U/L (39-117); Anion Gap 10 (12-20); Aspartate Amino Transferase 33 U/L (5-31); Bilirubin Direct 0.1 mg/dL (0.0-0.5); Bilirubin Total 0.3 mg/dL (0.0-1.0); Blood Urea Nitrogen 8 mg/dL (9-16); Calcium 9.2 mg/dL (8.4-10.2); Carbon Dioxide 24 mmol/L (22-29); Chloride 110 mmol/L (96-108); Cholesterol 154 mg/dL (<200); Estimated Glomerular Filt Rate > 60; Glucose Random 88 mg/dL (60-115); HDL Cholesterol 32 mg/dL (>40); LDL Cholesterol Calculated 81 mg/dL (<100); Potassium 3.5 mmol/L (3.3-5.1); Sodium 140 mmol/L (135-145); Total Protein 7.9 g/dL (6.5-8.0); Triglycerides 209 mg/dL (<150)
[2025-01-01 16:50] LABS: Free T4 (Free Thyroxine) 0.93 ng/dL (0.71-1.85); Thyroid Stimulating Hormone 1.13 uIU/mL (0.32-4.0); Vitamin D 25-OH Total 42.7 ng/mL (>30)
[2025-01-01 18:06] LABS: CT PCR NOT DETECTED (Not Detect.); NG PCR NOT DETECTED (Not Detect.)
[2025-01-04 08:42] LABS: HBS Num1 2.22 mIU/mL (0-7.99); HBsAGNum1 0.31 S/CO (0.00-0.99); HIV AB/AG Nonreactive (Nonreactive); HIV Num 1 0.09 S/CO (0.00-0.99); Hepatitis B Surface Antigen Negative (Negative); ~HepC Num1 0.16 S/CO (0.00-0.79); ~Hepatitis B Surface Antibody NONREACTIVE (Nonreactive); ~Hepatitis C Antibody Nonreactive (Nonreactive)
[2025-01-06 09:54] LABS: RPR Rapid Plasma Reagin NON-REACTIVE (NON-REACTIVE)
== END 2025-01-01 12:54 | disposition home or self-care (01) ==
LOC: HO.HHCL 12:53
PROVIDERS: Visit Provider Family Medicine
DX: G43.909 Migraine, unspecified, not intractable, without status migrainosus (principal)
CPT/HCPCS: 80048; 80061; 80076; 82306; 83036; 84439; 84443; 85027; 86592; 86706; 86803; 87340; 87389; 87491; 87591